=== PATIENT | male | born 1950 | race Caucasian/White ===

== ENCOUNTER 2024-03-27 10:48 | Day surgery (SDC) | payer MEDICARE, OTHER ==
[2024-03-27] MEDS: Lactated Ringers 1,000 ML IV SCH (11:05)
[2024-03-27] MEDS ORDERED: Propofol 200 MG/20 ML SDV ONE (12:18)
[2024-03-27] MEDS ORDERED: fentaNYL 100 MCG/2 ML SDV ONE (12:18)
[2024-03-27] MEDS ORDERED: Midazolam 1 MG/ML 2 ML SDV ONE (12:18)
[2024-03-27 13:05] VITALS: BP 126/77; PULSE 65
[2024-04-10] MEDS ORDERED: Lactated Ringers 1,000 ML IV SCH (07:00)
== END 2024-03-27 13:54 | disposition home or self-care (01) ==
LOC: VM.SDS 10:48
PROVIDERS: ATTEND Surgery
DX: Z12.11 Encounter for screening for malignant neoplasm of colon (principal); K57.30 Diverticulosis of large intestine without perforation or abscess without bleeding; E11.9 Type 2 diabetes mellitus without complications; K21.9 Gastro-esophageal reflux disease without esophagitis; E66.01 Morbid (severe) obesity due to excess calories; E11.40 Type 2 diabetes mellitus with diabetic neuropathy, unspecified; E78.1 Pure hyperglyceridemia; R00.2 Palpitations; R06.09 Other forms of dyspnea; R60.0 Localized edema; Z88.2 Allergy status to sulfonamides; Z79.4 Long term (current) use of insulin; Z79.899 Other long term (current) drug therapy; Z79.82 Long term (current) use of aspirin; Z68.41 Body mass index [BMI] 40.0-44.9, adult
CPT/HCPCS: 82947; J2250; J2704; J3010; J7120